=== PATIENT | female | born 1940 | race Caucasian/White ===

== ENCOUNTER 2024-09-08 10:07 | Inpatient (IN) | payer MEDICARE ==
[2024-09-08] VITALS (41 sets, daily range): BP systolic 80–123; BP diastolic 47–94; TEMP 97.3–97.8; O2SAT 94–100
[~2024-09-08] VITALS: Ht 165.1 cm; Wt 89.4 kg
[2024-09-08] MEDS: IV NORMAL SALINE 1000 ML BAG IV ONE (10:31)
[2024-09-08 10:39] LABS: BASOPHILS # (AUTO) 0.1 K/UL (0.0-0.2); EOSINOPHILS % (AUTO) 0.3 % (0.0-7.0); HEMATOCRIT 42.1 % (31.2-41.9); HEMOGLOBIN 14.3 g/dL (10.9-14.3); LYMPHOCYTES # (AUTO) 1.2 K/uL (0.8-4.8); LYMPHOCYTES % (AUTO) 7.8 % (20.5-51.5); MEAN CORPUSCULAR HEMOGLOBIN 30.8 uug (24.7-32.8); MEAN CORPUSCULAR HGB CONC 34 g/dL (32.3-35.6); MONOCYTES # (AUTO) 1.1 K/uL (0.1-1.30); NEUTROPHILS # (AUTO) 12.6 K/uL (1.8-8.9); NEUTROPHILS % (AUTO) 83.9 % (38.5-71.5); PLATELET COUNT (AUTO) 174 K/uL (179-408); RED BLOOD CELL COUNT(AUTO) 4.63 MIL/uL (3.63-4.92); RED CELL DISTRIBUTION WIDTH 14.1 % (12.3-17.7)
[2024-09-08 10:47] LABS: DIFFERENTIAL COMMENT 1
[2024-09-08 10:51] LABS: CALCIUM 9.3 mg/dL (8.5-10.1); CARBON DIOXIDE 20 mmol/L (21-32); CHLORIDE 106 mmol/L (98-107); CREATININE 0.8 mg/dL (0.6-1.3); GLUCOSE 137 mg/dL (74-106); POTASSIUM 4.2 mmol/L (3.5-5.1); SODIUM SERUM 143 mmol/L (136-145); UREA NITROGEN, BLOOD 22 mg/dL (7-18)
[2024-09-08 11:04] LABS: *BILIRUBIN,URIN 1+ (NEGATIVE); *BLOOD, URINE NEGATIVE (NEGATIVE); *CLARITY,URINE CLEAR (CLEAR); *COLOR,URINE YELLOW (YELLOW); *KETONES,URINE 4+ (NEGATIVE); *PROTEIN,URINE TRACE (NEGATIVE); *UROBILINOGEN,URINE 0.2 E.U./dl (NORMAL); LEUKOCYTE ESTERASE ,URINE NEGATIVE (NEGATIVE); NITRITE, URINE NEGATIVE (NEGATIVE); PH,URINE 5.5 (5.0-8.0); UGLUCOSE NEGATIVE (NEGATIVE)
[2024-09-08 11:09] LABS: BACTERIA,URINE FEW /HPF (NONE SEEN); SQUAMOUS EPITHELIAL CELL,UR FEW /HPF (NONE SEEN); WBC,URINE 0-3 /HPF (0-3)
[2024-09-08 11:09] LABS: LACTIC ACID 2.6 mmol/L (0.4-2.0)
[2024-09-08 11:12] LABS: ALANINE AMINOTRANSFERASE 20 U/L (14-59); ALBUMIN 2.9 g/dL (3.4-5.0); ALKALINE PHOSPHATASE 67 U/L (50-136); ASPARTATE AMINOTRANSFERASE 27 U/L (15-37); BILIRUBIN,DIRECT 0.2 mg/dL (0.0-0.2); BILIRUBIN,TOTAL 0.8 mg/dL (0.2-1.0); TOTAL PROTEIN, SERUM 7.4 g/dL (6.4-8.2)
[2024-09-08] MEDS ORDERED: OLAN5TAB3 PO (11:14)
[2024-09-08] MEDS ORDERED: CHOL2000 PO (11:14)
[2024-09-08] MEDS ORDERED: SILV50CR32 TP (11:14)
[2024-09-08] MEDS ORDERED: AMLO2.5T4 PO (11:14)
[2024-09-08] MEDS ORDERED: LORA0.5T48 PO (11:14)
[2024-09-08] MEDS ORDERED: MIRA50TA PO (11:14)
[2024-09-08] MEDS ORDERED: SIMV-46 PO (11:14)
[2024-09-08] MEDS ORDERED: CEPH500C2 PO (11:14)
[2024-09-08] MEDS ORDERED: MEMA28CA5 PO (11:14)
[2024-09-08] MEDS ORDERED: DONE10TA44 PO (11:14)
[2024-09-08] MEDS: IV NS 1000 ML 1,000 ML IV ONE ×3 (11:41→13:25)
[2024-09-08] MEDS: PIPERACILLIN SODIUM/TAZOBACTAM 4.5 G in IV DEXTROSE 5% 50 ML IV SCH (12:21)
[2024-09-08] MEDS: VANCOMYCIN IV 1,000 MG in IV DEXTROSE 5% 250 ML IV ONE (12:56)
[2024-09-08] MEDS: NOREPINEPHRINE 8MG/NS 250ML 250 ML IV PRN (15:33)
[2024-09-08] MEDS ORDERED: ONDANSETRON 4 MG/2 ML VIAL IV PRN (20:00)
[2024-09-08] MEDS ORDERED: REMEDY ESSENTIAL ZINC PASTE 113 GM TP PRN (20:00)
[2024-09-08] MEDS ORDERED: ACETAMINOPHEN 325 MG TABLET PO PRN (20:00)
[2024-09-08] MEDS: IV LACTATED RINGERS SOLUTION 1,000 ML IV SCH (20:23)
[2024-09-08] MEDS: ENOXAPARIN SODIUM 40 MG/0.4 ML DISP.SYRIN SQ SCH (20:29)
[2024-09-08] MEDS ORDERED: PIPERACILLIN SODIUM/TAZOBACTAM 3.375 G in IV DEXTROSE 5% 50 ML IV SCH (22:00)
[2024-09-09] VITALS (36 sets, daily range): BP systolic 44–213; BP diastolic 11–145; TEMP 97; O2SAT 76–98
[2024-09-09] MEDS: HEPARIN/D5W DRIP 500 ML IV PRN (00:25)
[2024-09-09 05:36] LABS: BASOPHILS % (AUTO) 0.1 % (0.0-2.0); HEMATOCRIT 37.5 % (31.2-41.9); LYMPHOCYTES # (AUTO) 1.7 K/uL (0.8-4.8); LYMPHOCYTES % (AUTO) 9.3 % (20.5-51.5); MEAN CORPUSCULAR HEMOGLOBIN 30.4 uug (24.7-32.8); MEAN CORPUSCULAR HGB CONC 32 g/dL (32.3-35.6); MEAN CORPUSCULAR VOLUME 95.1 fL (75.5-95.3); MONOCYTES # (AUTO) 1.2 K/uL (0.1-1.30); MONOCYTES % (AUTO) 6.4 % (0.0-11.0); NEUTROPHILS # (AUTO) 15.1 K/uL (1.8-8.9); NEUTROPHILS % (AUTO) 84.2 % (38.5-71.5); PLATELET COUNT (AUTO) 160 K/uL (179-408); RED BLOOD CELL COUNT(AUTO) 3.94 MIL/uL (3.63-4.92); RED CELL DISTRIBUTION WIDTH 15.1 % (12.3-17.7); WHITE BLOOD COUNT (AUTO) 17.9 K/uL (3.8-11.8)
[2024-09-09 05:52] LABS: DIFFERENTIAL COMMENT 1
[2024-09-09 06:03] LABS: ALANINE AMINOTRANSFERASE 138 U/L (14-59); ALBUMIN 2.3 g/dL (3.4-5.0); ALKALINE PHOSPHATASE 62 U/L (50-136); ASPARTATE AMINOTRANSFERASE 160 U/L (15-37); BILIRUBIN,TOTAL 0.5 mg/dL (0.2-1.0); CARBON DIOXIDE 14 mmol/L (21-32); CHLORIDE 110 mmol/L (98-107); CREATININE 1.5 mg/dL (0.6-1.3); GLUCOSE 309 mg/dL (74-106); MAGNESIUM 2.2 mg/dL (1.8-2.4); POTASSIUM 4.9 mmol/L (3.5-5.1); SODIUM SERUM 144 mmol/L (136-145); UREA NITROGEN, BLOOD 31 mg/dL (7-18)
[2024-09-09 06:28] LABS: PHOSPHOROUS 8.4 mg/dL (2.5-4.9)
[2024-09-09] MEDS: IV LACTATED RINGERS SOLUTION 1,000 ML IV PRN (06:31)
[2024-09-09 06:46] LABS: CHOLESTEROL 169 mg/dL (<200); HDL CHOLESTEROL 41 mg/dL (40-60); TRIGLYCERIDES 109 MG/DL (30-150)
[2024-09-09] MEDS ORDERED: NOREPINEPHRINE BITARTRATE 32 MG in IV NORMAL SALINE 218 ML IV PRN (09:00)
[2024-09-09] MEDS ORDERED: OLANZAPINE 5 MG TABLET PO SCH ×2 (09:00)
[2024-09-09] MEDS ORDERED: PANTOPRAZOLE SODIUM 40 MG VIAL IV SCH (09:00)
[2024-09-09] MEDS ORDERED: PIPERACILLIN SODIUM/TAZOBACTAM 3.375 G in IV DEXTROSE 5% 100 ML IV SCH (14:00)
[2024-09-09] MEDS ORDERED: SIMVASTATIN 20 MG TABLET PO SCH ×2 (18:00→21:00)
== END 2024-09-09 10:28 | DRG 871 ==
LOC: ER 10:07 → CCU 13:47
PROVIDERS: ADMIT Nurse Practitioner Acute Care; ATTEND Nurse Practitioner Acute Care
PROC: 02HV33Z Insertion of Infusion Device into Superior Vena Cava, Percutaneous Approach (ICD-10-PCS; principal; 2024-09-08)
DX: A41.9 Sepsis, unspecified organism (principal); G93.41 Metabolic encephalopathy; I21.A1 Myocardial infarction type 2; R65.21 Severe sepsis with septic shock; Z66 Do not resuscitate; J96.01 Acute respiratory failure with hypoxia; I26.09 Other pulmonary embolism with acute cor pulmonale; E87.20 Acidosis, unspecified; L97.311 Non-pressure chronic ulcer of right ankle limited to breakdown of skin; L97.821 Non-pressure chronic ulcer of other part of left lower leg limited to breakdown of skin; L03.115 Cellulitis of right lower limb; N17.9 Acute kidney failure, unspecified; D68.9 Coagulation defect, unspecified; J01.80 Other acute sinusitis; D69.6 Thrombocytopenia, unspecified; E11.622 Type 2 diabetes mellitus with other skin ulcer; G90.89 Other disorders of autonomic nervous system; E86.0 Dehydration; E86.1 Hypovolemia; N32.81 Overactive bladder; F03.90 Unspecified dementia, unspecified severity, without behavioral disturbance, psychotic disturbance, mood disturbance, and anxiety
CPT/HCPCS: 36415; 71045; 71275; 82533; 83605; 83735; 84100; 84443; 84484; 85025; 85730; 87040; A4606; A4663; A6209; C1758; G0378; J2543; J7040; J7120